=== PATIENT | male | born 1950 | race Caucasian/White ===

== ENCOUNTER → 2016-12-29 | Outpatient (REF) ==
[~2016-12-29] MED LIST: ACET65TA; AMBIEN10 PO; ASPI325T; BABY81CH; CATA0.1T; DEPA250T3; DEPAKOT250 PO; DIOVAN80 PO; HCTZ25 PO; NORVASC5 PO; PLAV75TA2; VALS80CA
[2016-12-29 11:40] LABS: MEAN CORPUSCULAR HEMOGLOBIN 29.6 pg (27.0-33.0); MEAN CORPUSCULAR HGB CONC 33.6 g/dl (32.0-36.5); MEAN CORPUSCULAR VOLUME 87.9 fl (80.0-96.0); RED CELL DISTRIBUTION WIDTH 12.8 % (11.5-14.5); WHITE BLOOD COUNT 6.1 10^3/uL (4.0-10.0)
[2016-12-29 12:55] LABS: ANION GAP 5 MEQ/L (8-16); BLOOD UREA NITROGEN 22 MG/DL (7-18); CARBON DIOXIDE LEVEL 30 MEQ/L (21-32); CHLORIDE LEVEL 106 MEQ/L (98-107); CHOLESTEROL LEVEL 212 MG/DL (<200); CREATININE FOR GFR 1.01 MG/DL (0.70-1.30); GLOMERULAR FILTRATION RATE > 60.0 (>49); GLUCOSE, FASTING 98 MG/DL (80-110); POTASSIUM SERUM 4.4 MEQ/L (3.5-5.1); SODIUM LEVEL 141 MEQ/L (136-145); TRIGLYCERIDES LEVEL 158 MG/DL (<150)
--- NOTE | 2016-12-30 00:52 | REP ---
Clinical: Annual employee health requirement . Comparison: 12/16/2013 . Technique: PA and lateral. Findings: The mediastinum and cardiac silhouette are normal. The lung soliman suggests chronic changes although lateral view cannot exclude new basilar opacities. No effusion, or pneumothorax. The skeletal structures are intact and normal. Impression: 1. No acute cardiopulmonary process. 2. New, subtle right lower lobe opacities on lateral radiograph cannot be excluded and may warrant chest CT for further investigation. Signed by Rommel Botello MD 12/30/2016 12:44 A
--- NOTE | 2016-12-30 23:15 | ECGEPIP ---
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
== END ==
LOC: M LAB 10:57
PROVIDERS: ATTEND Family Medicine
DX: Z02.9 Encounter for administrative examinations, unspecified (principal)

== ENCOUNTER → 2017-08-15 | Outpatient (CLI) | payer OTHER ==
[2017-08-15 08:45] LABS: ALBUMIN 4.2 GM/DL (3.2-5.2); ALBUMIN/GLOBULIN RATIO 1.17 (1.00-1.93); ALKALINE PHOSPHATASE 87 U/L (45-117); ALT/SGPT 43 U/L (12-78); ANION GAP 7 MEQ/L (8-16); AST/SGOT 22 U/L (7-37); BILIRUBIN,TOTAL 0.2 MG/DL (0.2-1.0); BLOOD UREA NITROGEN 28 MG/DL (7-18); CALCIUM LEVEL 8.7 MG/DL (8.8-10.2); CARBON DIOXIDE LEVEL 26 MEQ/L (21-32); CHLORIDE LEVEL 107 MEQ/L (98-107); CHOLESTEROL LEVEL 227 MG/DL (<200); CHOLESTEROL RISK RATIO 7.566 (<5); CREATININE FOR GFR 1.15 MG/DL (0.70-1.30); FREE THYROXINE INDEX 2.2 % (1.4-3.8); GLOMERULAR FILTRATION RATE > 60.0 (>49); GLUCOSE, FASTING 95 MG/DL (70-100); HDL CHOLESTEROL 30 MG/DL (>40); LDL CHOLESTEROL 152.2 MG/DL (<100); NON-HDL-C 197 MG/DL; POTASSIUM SERUM 4.3 MEQ/L (3.5-5.1); SODIUM LEVEL 140 MEQ/L (136-145); T UPTAKE 25 % (33-40); THYROXINE (T4) 8.6 UG/DL (4.5-12.0); TOTAL PROTEIN 7.8 GM/DL (6.4-8.2); TRIGLYCERIDES LEVEL 224 MG/DL (<150)
== END ==
LOC: M LAB 07:28
DX: Z00.00 Encounter for general adult medical examination without abnormal findings (principal); E78.5 Hyperlipidemia, unspecified; E07.9 Disorder of thyroid, unspecified

== ENCOUNTER → 2018-05-22 | Outpatient (CLI) | payer MEDICARE ==
[~2018-05-22] MED LIST changes: +ISOVUE-370 76% 100ML VIAL (Q9967) As Ordered ONE
--- NOTE | 2018-05-22 10:53 | REP ---
CT of the chest with IV contrast for follow up of lung nodules: Comparison is 01/31/2017. There is a 4 ml pleural-based nodule in the right lower lobe on image 56. This is unchanged from the prior study. It was on image 57, previously. There is a 6 ml pleural-based nodule in the right lower lobe on image 65. This nodule previously measured 3 mm. It is on image 67, previously. There are small calcified granulomas in the lower lobes bilaterally, unchanged. There are no other lung nodules or masses. Specifically, no left lower lobe lung nodules are identified except for a small granulomas. There are no acute infiltrates or pleural effusions. There is no mediastinal or hilar lymph node enlargement. There is no axillary lymph node enlargement. There is calcified atheroma in the coronary arteries. This is unchanged. Half half The thoracic aorta is unremarkable. Cardiac size is normal. The visualized upper abdomen the liver is less dense than the spleen suggestive of hepato steatosis, unchanged. The gallbladder, pancreas and spleen are unremarkable. There is no adrenal mass. Impression: One of the two right lower lobe lung nodules as increased size from 3 mm to 6 mm. This is a category III lung nodule with the probability malignancy 1-2%. Follow-up CT in 6 months is recommended. The other right lower lobe lung nodule is unchanged and measures 3 mm and is likely benign. There are no left lower lobe lung nodules. Electronically Signed by Alfred Stratton MD 05/22/2018 10:46 A
== END ==
LOC: M RAD 07:13
PROVIDERS: ATTEND Family Medicine
DX: R91.8 Other nonspecific abnormal finding of lung field (principal)
CPT/HCPCS: 71260; Q9967

== ENCOUNTER → 2018-10-08 | Outpatient (REF) | payer MEDICARE ==
[~2018-10-08] MED LIST changes: -ISOVUE-370 76% 100ML VIAL (Q9967) As Ordered ONE
== END ==
LOC: M LAB REF 12:53
PROVIDERS: ATTEND Family Medicine
DX: R53.83 Other fatigue (principal)

== ENCOUNTER → 2018-11-28 | Outpatient (REF) | payer MEDICARE | LOC: M LAB REF 12:55 | PROVIDERS: ATTEND Family Medicine | DX: F31.81 Bipolar II disorder (principal) ==

== ENCOUNTER → 2018-12-04 | Outpatient (CLI) | payer MEDICARE ==
[~2018-12-04] MED LIST changes: +ISOVUE-370 76% 100ML VIAL (Q9967) As Ordered ONE
--- NOTE | 2018-12-04 17:51 | REP ---
Clinical: Follow-up pulmonary nodules. Technique: Axial contrast enhanced images from the thoracic inlet to the upper abdomen with coronal and sagittal re-formations using 100 ml Isovue 370 intravenous contrast material. Comparison: 05/22/2018, 01/31/2017. Findings: The previously noted small subpleural noncalcified density measuring up to 6 mm in the posterior right lower lobe has resolved and likely represented small focal atelectasis. The second subpleural 3 mm nodule along the right lower lobe (image 50) remains stable compared to 01/31/2017. 3 mm noncalcified nodule in the posterior periphery of the left lower lobe (image 74) remains stable compared through 01/31/2017. Very small 1-2 mm subpleural calcifications are also noted and unchanged. No significant consolidation, nodule or mass lesion noted. No pleural effusion. No pneumothorax. Tracheobronchial tree is patent. Minimal age-related interstitial changes are noted. No adenopathy. Mediastinum demonstrates normal thoracic aorta without aneurysm or dissection. Atherosclerotic changes to the coronary arteries noted without cardiomegaly or pericardial effusion. Limited upper abdomen demonstrates fatty infiltration to the liver and normal bilateral adrenal glands. Ischial skeletal structures demonstrate degenerative change without focal abnormality. Impression: 1. The previously noted/followed noncalcified subpleural nodules in the right lower lobe and left lower lobe remains stable through 01/31/2017 and likely represent chronic noncalcified granulomata. 2. No new acute or significant mediastinal or pleuroparenchymal process is appreciated. Electronically Signed by Rommel Botello MD 12/04/2018 05:42 P
== END ==
LOC: M RAD 16:33
PROVIDERS: ATTEND Family Medicine
DX: R91.8 Other nonspecific abnormal finding of lung field (principal)
CPT/HCPCS: 71260; Q9967

== ENCOUNTER → 2019-05-03 | Outpatient (CLI) | payer MEDICARE ==
[~2019-05-03] MED LIST changes: -ISOVUE-370 76% 100ML VIAL (Q9967) As Ordered ONE
[2019-05-03 15:00] LABS: HEMATOCRIT 41.6 % (42.0-52.0); HEMOGLOBIN 13.7 g/dl (13.5-17.5); MEAN CORPUSCULAR HEMOGLOBIN 30.2 pg (27.0-33.0); MEAN CORPUSCULAR HGB CONC 32.9 g/dl (32.0-36.5); MEAN CORPUSCULAR VOLUME 91.8 fl (80.0-96.0); PLATELET COUNT, AUTOMATED 209 10^3/uL (150-450); RED BLOOD COUNT 4.53 10^6/uL (4.30-6.10); WHITE BLOOD COUNT 5.6 10^3/uL (4.0-10.0)
[2019-05-03 15:13] LABS: INR 1.04; PROTHROMBIN TIME 13.4 SECONDS (11.8-14.0)
--- NOTE | 2019-05-03 15:15 | REP ---
PA and lateral chest: Comparison is 12/29/2016. The lung soliman are clear. The cardiac size is normal. The esme, mediastinum, and skeletal structures are unremarkable. Impression: Negative PA and lateral chest. Electronically Signed by Alfred Stratton MD 05/03/2019 03:07 P
[2019-05-03 15:32] LABS: ALBUMIN 4.2 GM/DL (3.2-5.2); ALT/SGPT 48 U/L (12-78); BILIRUBIN,TOTAL 0.3 MG/DL (0.2-1.0); BLOOD UREA NITROGEN 24 MG/DL (7-18); CALCIUM LEVEL 9.2 MG/DL (8.8-10.2); CARBON DIOXIDE LEVEL 30 MEQ/L (21-32); CHLORIDE LEVEL 105 MEQ/L (98-107); CREATININE FOR GFR 1.05 MG/DL (0.70-1.30); GLOMERULAR FILTRATION RATE > 60.0 (>49); GLUCOSE, FASTING 96 MG/DL (70-100); POTASSIUM SERUM 3.9 MEQ/L (3.5-5.1); SODIUM LEVEL 141 MEQ/L (136-145); TOTAL PROTEIN 7.5 GM/DL (6.4-8.2)
[2019-05-03 23:11] LABS: ERYTHROCYTE SEDIMENTATION RATE 9 mm/hr (0-20)
== END ==
LOC: M LAB 14:20
PROVIDERS: ATTEND Family Medicine
DX: Z01.818 Encounter for other preprocedural examination (principal); E07.9 Disorder of thyroid, unspecified; M17.12 Unilateral primary osteoarthritis, left knee

== ENCOUNTER 2019-05-22 06:40 | Inpatient (IN) | payer MEDICARE ==
--- NOTE | 2019-05-15 15:36 | HPE ---
DATE OF ADMISSION: 05/22/2019 CHIEF COMPLAINT: Left knee pain. HISTORY OF PRESENT ILLNESS: Uche is a pleasant 68-year-old male with progressively worsening left knee pain and stiffness. He has failed to improve with conservative treatment. He has elected for surgery for his continued symptoms. He has pain with weightbearing activities and his activities of daily living. X-rays of his knee are notable for advanced osteoarthritis of the left knee joint. He has consented for a left total knee arthroplasty by Dr. Leroy Borges. Medical optimization was performed by Dr. Fernandez's office. ALLERGIES: JACKY INHIBITORS and LISINOPRIL. CURRENT MEDICATIONS: - Norvasc - venlafaxine HCTZ 12.5 mg a day - Effexor - Depakote PAST MEDICAL HISTORY: Includes: Hypertension, depression. PAST SURGICAL HISTORY: Includes: Lap/appy in the 90s and a hernia repair as a child. 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 Does not smoke. Does not drink. FAMILY HISTORY: Noncontributory. REVIEW OF SYSTEMS: This patient denies chest pain, heart palpitations, cough, wheezing, difficulty breathing, and shortness of breath. He denies abdominal pain, nausea, vomiting, diarrhea, or constipation. He denies a recent upper respiratory infection or urinary tract infection symptoms. He does complain of persistent pain in the left knee. PHYSICAL EXAMINATION: General: He is a well nourished, well developed, in no acute distress alert male patient. He walks with a moderate limp favoring the left lower extremity. He is not using assisted devices. Vital signs: He is 6'1. Weights 225 pounds. Temperature 98.1. Blood pressure 124/79. Pulse 68. Respirations 14. Neck: Supple without adenopathy or jugular venous distention. There were no carotid bruits appreciated upon auscultation. Lungs: Clear to auscultation without rales or wheeze. Heart: Regular rate and rhythm. Abdomen: Bowel sounds were present. Extremities: Examination of the knee reveals a benign noninfectious looking well healing cat scratch proximal to the knee. Otherwise the skin was intact. He had decreased range of motion due to pain and stiffness and the limb is neurovascularly intact. LABORATORY DATA: Patient did have an EKG, but ended up having a treadmill nuclear stress test with good exercise tolerance. EKG negative for exercise induced ischemia. Normal left ventricular wall motion and pulmonary uptake. Chest x-ray showed no acute cardiopulmonary disease processes. CBC showed hematocrit of 41.6, otherwise within normal limits. Sed rate was 9. Glucose 96. BUN 24. Creatinine 1.05. Sodium 141. Potassium 3.9. Prothrombin time 13.4. INR 1.04. IMPRESSION: Symptomatic osteoarthritis of the left knee joint. PLAN: Consented for a left total knee arthroplasty by Dr. Leroy Borges.
[~2019-05-22] VITALS: Ht 185.4 cm; Wt 100.9 kg
[~2019-05-22 06:40] MED LIST changes: +AMLO10TA PO; +ASPI81TA85 PO; +CVS1CAP2 PO; +DEPA250T32 PO; +DIOV80TA3 PO; +LOSA50TA88 PO; +MULTCAP PO; +PERC5TAB12 PO; +VENL75TA2 PO
[2019-05-22] MEDS ORDERED: fentaNYL 100 MCG/2 ML INJECTION (J3010) As Ordered ONE ×2 (06:56→09:27)
[2019-05-22] MEDS ORDERED: MIDAZOLAM INJ 2 MG/2 ML VIAL (J2250) As Ordered ONE ×3 (06:56→11:33)
[2019-05-22] MEDS ORDERED: ONDANSETRON 4MG/2ML VIAL (J2405) As Ordered ONE ×2 (06:57→10:54)
[2019-05-22] MEDS ORDERED: propofoL 200 MG/20 ML VIAL As Ordered ONE ×2 (06:57→10:53)
[2019-05-22] MEDS ORDERED: ROCURONIUM BROMIDE 50 MG/5 ML VIAL As Ordered ONE (06:57)
[2019-05-22] MEDS ORDERED: LIDOCAINE 2% INJ 100 MG/5 ML SDV (FOR ANES.) As Ordered ONE ×2 (06:57→10:53)
[2019-05-22] MEDS ORDERED: dexameTHASONE 4 MG/ML 1ML VIAL (J1100) As Ordered ONE ×2 (06:57→10:54)
[2019-05-22] MEDS ORDERED: SUGAMMADEX SODIUM 500 MG/5 ML VIAL (BRIDION) As Ordered ONE (06:57)
[2019-05-22] MEDS ORDERED: ACETAMINOPHEN 500 MG TAB PO ONE (07:00)
[2019-05-22] MEDS ORDERED: LR 1,000 ML IV ONE (07:00)
[2019-05-22] MEDS ORDERED: ceFAZolin SOD 2 GM in IV 1 EA IV ONE (07:00)
[2019-05-22] MEDS ORDERED: HYDR12.55 PO (08:19)
[2019-05-22] MEDS ORDERED: BUPIVACAINE HCL 0.25% 10 ML VIAL As Ordered ONE (10:02)
[2019-05-22] MEDS ORDERED: TRANEXAMIC ACID 100 MG/ML 10ML VIAL As Ordered ONE (10:02)
[2019-05-22] MEDS ORDERED: ceFAZolin 1GM INJ (J0690 PER 500MG) As Ordered ONE (10:03)
[2019-05-22] MEDS ORDERED: BUPIVACAINE LIPOSOME/PF 1.3% 20ML VIAL (13.3MG/ML)(EXPAREL)(C9290 PER1MG) As Ordered ONE (10:03)
[2019-05-22] MEDS ORDERED: EPINEPHrine INJ 1 MG/ML 1ML VIAL As Ordered ONE (10:03)
[2019-05-22] MEDS: fentaNYL 100 MCG/2 ML INJECTION (J3010) IV SCH ×2 (10:23→10:31)
[2019-05-22] MEDS: MIDAZOLAM INJ 2 MG/2 ML VIAL (J2250) IV SCH ×2 (10:23→10:31)
[2019-05-22] MEDS ORDERED: ROPIvacaine 0.5% 30 ML INJECTION (J2795 PER 1MG) ONE (13:37)
[2019-05-22] MEDS ORDERED: dexameTHASONE 10 MG/1 ML VIAL PRES.FREE (J1100) ONE (13:37)
[2019-05-22] MEDS ORDERED: LIDOCAINE 1% MDV 20ML VIAL ONE (13:37)
--- NOTE | 2019-05-22 14:49 | REP ---
Clinical: Status post knee replacement. Technique AP and cross-table lateral views. Findings: The patient is status post left knee replacement with normal positioning and appearance to the femoral and tibial components. Overlying postsurgical changes appreciated. Impression: Status post left knee replacement. Electronically Signed by Rommel Botello MD 05/22/2019 02:37 P
[2019-05-22] MEDS ORDERED: fentaNYL 100 MCG/2 ML INJECTION (J3010) IV PRN (15:00)
[2019-05-22] MEDS ORDERED: ONDANSETRON 4MG/2ML VIAL (J2405) IV PRN ×2 (15:00→16:00)
[2019-05-22] MEDS ORDERED: LR 1,000 ML IV SCH ×2 (15:00→16:00)
[2019-05-22] MEDS ORDERED: PERCOCET 5MG/325MG TAB PO PRN ×3 (15:00→22:15)
[2019-05-22 15:10] VITALS: BP 113/75
[2019-05-22] MEDS ORDERED: ACETAMINOPHEN TAB 650MG DOSE (2X325MG) PO PRN (16:00)
[2019-05-22] MEDS ORDERED: MORPHINE 2 MG/ML 1ML VIAL (J2270) IV PRN (16:00)
[2019-05-22 16:39] VITALS: BP 136/87
--- NOTE | 2019-05-22 16:55 | CR.PDOC ---
General Date of Consultation: May 22, 2019 Referring Provider: Mag Borges Attending Physician: MARCIN IBRAHIM MD Consultation HOSPITALIST CONSULT REASON FOR CONSULTATION/CHIEF COMPLAINT: medical management post-operatively HISTORY OF PRESENT ILLNESS: This is a 68-year-old male who underwent elective total left knee replacement with Dr. Borges today. Hospitalist was consulted for continued medical management. Patient has no current complaints while examined at bedside, and indicates the surgery went well and is now comfortable in bed. Denies any chest pain, dyspnea, n/v/abd pain, leg pain or paresthesia. Tolerating by mouth intake well. Has no complaints. ALLERGIES: Please see below. HOME MEDICATIONS: Please see below. 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 General exam: Alert and cooperative, A&Ox3, NAD Eye exam: PERRLA, EOMI ENT: Atraumatic, normocephalic, mucous membranes moist, tongue midline, no pharyngeal edema Neck: Supple Cardiac: RRR, normal S1 & S2, no murmurs Respiratory: CTAB, good air exchange, no wheezing, rhonchi, or rales Abdomen: normoactive bowel sounds, soft, nontender, nondistended Extremity: 2+ radial pulses, no edema or calf tenderness. Well-perfused, left knee in jacky wrap post-op MSK: able to move all extremities independently against gravity, no joint effusion or erythema. Trace LE edema b/l Skin: [place], warm, dry, no visible rash or lesions Neuro: normal tone, sensation intact, normal speech, no focal deficits Psych: Normal mood and affect LABORATORY DATA: Please see below. ASSESSMENT/PLAN: 1. S/P left knee total arthroplasty post-op Day 1: Pain, diet, activity as per Ortho. Work with therapy 2. Hypertension: Currently well controlled. Monitor postoperatively and check renal function and a.m. labs. Resume home meds as needed 3. Depression: Stable current regimen for over 20 years per the patient. Continue home meds. Thank you for involving us in this patient's care. Please call for any questions. Vital Signs/I&O Vital Signs Date Time Temp Pulse Resp B/P (MAP) Pulse Ox O2 Delivery O2 Flow Rate FiO2 05/22/19 14:30 76 18 120/81 (94) 97 Room Air 05/22/19 14:10 2 05/22/19 14:05 98.6 Allergies Coded Allergies: JACKY Inhibitors (Unverified Adverse Reaction, Unknown, ringing in ears, 05/14/19) Home Medications Scheduled Amlodipine Besylate (Norvasc) 10 Mg Tablet, 10 MG PO DAILY, (Reported) Aspirin (Aspir 81) 81 Mg Tablet.dr, 81 MG PO DAILY, #30 (Reported) Divalproex Sodium (Depakote) 250 Mg Tablet.dr, 250 MG PO QID, (Reported) Hydrochlorothiazide (Hydrochlorothiazide) 12.5 Mg Tablet, 12.5 MG PO DAILY, (Reported) Lactobacillus Combo No.10 (Probiotic) 1 Each Capsule, 1 CAP PO DAILY, (Reported) Losartan Potassium (Losartan Potassium) 50 Mg Tablet, 50 MG PO BID, (Reported) Multivitamin (Multivitamins) 1 Each Capsule, 1 CAP PO DAILY, (Reported) Venlafaxine HCl (Venlafaxine HCl) 75 Mg Tablet, 75 MG PO BID, (Reported) Scheduled PRN Oxycodone HCl/Acetaminophen (Percocet 5-325 mg Tablet) 1 Each Tablet, 1 TAB PO Q6H PRN for PAIN, #20 (Reported) GME ATTESTATION GME ATTESTATION My faculty preceptor for this patient encounter was physically present during the encounter and was fully available. All aspects of the patient interview, examination, medical decision making process, and medical care plan development were reviewed and approved by the faculty preceptor. The faculty preceptor is aware and concurs with the plan as stated in the body of this note and will attest to such by his/her cosignature. CAROLINA NICHOLS DO May 22, 2019 15:04
[2019-05-22] MEDS: DIVALPROEX 250 MG TAB PO SCH ×2 (17:31→20:25)
[2019-05-22 17:38] VITALS: BP 136/87
[2019-05-22 18:38] VITALS: BP 137/86
[2019-05-22 19:30] VITALS: BP 137/87
[2019-05-22] MEDS: VENLAFAXINE 37.5 MG TAB PO SCH (20:25)
[2019-05-22] MEDS: ceFAZolin SOD 2 GM in IV 1 EA IV SCH (20:25)
[2019-05-22] MEDS: MORPHINE 4 MG/ML 1ML VIAL/SYRINGE (J2270) IV PRN (21:33)
[2019-05-22] MEDS: PERCOCET 5MG/325MG TAB PO PRN (22:17)
[2019-05-23] MEDS: MORPHINE 4 MG/ML 1ML VIAL/SYRINGE (J2270) IV PRN (00:28)
[2019-05-23 02:00] VITALS: BP_SYST 129; BP_SYST 137; BP_DIAS 79; BP_DIAS 87
[2019-05-23] MEDS: ceFAZolin SOD 2 GM in IV 1 EA IV SCH ×2 (03:50→11:15)
[2019-05-23] MEDS: PERCOCET 5MG/325MG TAB PO PRN ×5 (03:51→21:02)
[2019-05-23 06:00] VITALS: BP 127/79
[2019-05-23] MEDS ORDERED: PERC5TAB12 PO (06:01)
[2019-05-23] MEDS ORDERED: XARE10TA PO (06:03)
[2019-05-23 07:23] LABS: BASO % 0.1 % (0.0-1.0); HEMATOCRIT 33.7 % (42.0-52.0); HEMOGLOBIN 11.5 g/dl (13.5-17.5); LYMPH % 7.4 % (24.0-44.0); MEAN CORPUSCULAR HEMOGLOBIN 31.3 pg (27.0-33.0); MEAN CORPUSCULAR HGB CONC 34.1 g/dl (32.0-36.5); MEAN CORPUSCULAR VOLUME 91.6 fl (80.0-96.0); MONO # 1.4 10^3/uL (0.0-0.8); MONO % 9.9 % (0.0-5.0); NEUTROPHILS # 11.3 10^3/uL (1.5-8.5); NEUTROPHILS % 82.1 % (36.0-66.0); PLATELET COUNT, AUTOMATED 211 10^3/uL (150-450); RED BLOOD COUNT 3.68 10^6/uL (4.30-6.10); WHITE BLOOD COUNT 13.7 10^3/uL (4.0-10.0)
[2019-05-23 07:54] LABS: ALBUMIN 3.4 GM/DL (3.2-5.2); ALT/SGPT 35 U/L (12-78); BILIRUBIN,TOTAL 0.1 MG/DL (0.2-1.0); BLOOD UREA NITROGEN 18 MG/DL (7-18); CALCIUM LEVEL 8.6 MG/DL (8.8-10.2); CARBON DIOXIDE LEVEL 27 MEQ/L (21-32); CHLORIDE LEVEL 108 MEQ/L (98-107); CREATININE FOR GFR 1.02 MG/DL (0.70-1.30); GLOMERULAR FILTRATION RATE > 60.0 (>49); GLUCOSE, FASTING 137 MG/DL (70-100); POTASSIUM SERUM 4.4 MEQ/L (3.5-5.1); SODIUM LEVEL 138 MEQ/L (136-145); TOTAL PROTEIN 6.5 GM/DL (6.4-8.2)
[2019-05-23 08:20] VITALS: BP 121/72
[2019-05-23] MEDS: ASPIRIN 81 MG ENTERIC TAB PO SCH (08:58)
[2019-05-23] MEDS: DIVALPROEX 250 MG TAB PO SCH ×4 (08:58→21:03)
[2019-05-23] MEDS: MIRALAX *UNIT DOSE* 17GM PACKET PO SCH (08:59)
[2019-05-23] MEDS: MOM 30ML SUSPENSION UDC PO SCH (08:59)
[2019-05-23] MEDS: VENLAFAXINE 37.5 MG TAB PO SCH ×2 (08:59→21:03)
--- NOTE | 2019-05-23 10:10 | RO ---
DATE OF PROCEDURE: 05/22/2019 PREPROCEDURE DIAGNOSIS: Extreme varus tricompartmental degenerative arthritis of the left knee. POSTPROCEDURE DIAGNOSIS: Extreme varus tricompartmental degenerative arthritis of the left knee. PROCEDURE: Left total knee arthroplasty using a Size 7 cruciate retaining Attune cemented femoral component with a size 8 tibial tray with a 10 mm rotating platform polyethylene insert and a 38 mm polyethylene button. All components were cemented. Prosthesis was made by [employer]. SURGEON: Dr. Mag Borges VICE PRESIDENT NETWORK: Ms. Binta Peres ANESTHESIA: Spinal with left femoral nerve block. COMPLICATIONS: None. ESTIMATED BLOOD LOSS: 20 mL. SPECIMEN: Joint surface. DESCRIPTION OF PROCEDURE: Antibiotics were given intravenously preoperatively and a successful left femoral nerve block and then spinal anesthetic was induced. Tourniquet placed on the left upper thigh and not inflated. The left lower extremity was prepped and draped in the usual sterile fashion, elevated and after an appropriate time out the tourniquet was inflated and a longitudinal incision was made for a medial parapatellar approach to the knee. Bovie cautery was used to coagulate crossing vessels. Medial parapatellar arthrotomy was made. Subperiosteal dissection around the proximal medial and lateral tibial plateau was performed and then we everted the patella and flexed the knee and debrided the anterior cruciate ligament (ACL). We placed the drill down the center of the femoral canal, followed by the intramedullary jah and the distal femoral cutting jig set at 5 degrees valgus cut at 9 mm resection level for a left knee. The block was pinned in position and distal femoral cut performed. AP sizing jig measured for a size 7. Then 3 degrees of external rotation was dialed in and the pins were placed. The 4-in-1 block applied. Anterior, posterior, and chamfer cuts performed. The sulcus osteotomy jig was then applied and the sulcus osteotomy performed. We then exposed the proximal tibia and used the extramedullary alignment jig to estimate being parallel to the mechanical axis. We centered over the ankle. He had a significant amount of proximal tibial bowing, so we just used the joint line and the ankle to align the extramedullary jah. We referenced off the medial tibial condyle a 4 mm resection level. The block was pinned into position. Secondary check with the extramedullary jah confirmed we appeared to be parallel to the mechanical axis. Thus, proximal tibial osteotomy was then performed. The [facility] advanced practice nurse was then placed laterally and we performed a completion medial meniscectomy with debridement of the posterior medial osteophytes. Then placed the [facility] advanced practice nurse medially and performed a completion lateral meniscectomy with debridement of posterior lateral osteophytes. The 10 mm spacer fit the best and actually had excellent symmetry in varus, valgus and AP stress testing. Thus, surprisingly I did not feel the need to convert to a posterior cruciate sacrificing construct because he had good balance and stability. Thus, at this point we then sized for a #8 tibial tray, pinned it into position, followed by the reamer and the broach. Then, the trial 10 mm was placed, followed by the trial femoral component. We brought the knee into extension, everted the patella and performed a patellar osteotomy and sized for a 38 osteotomy. Lug holes were drilled. We then brought the knee through a range of motion and the patellofemoral tracking was anatomic. At this point, we drilled the lug holes for the femur. We then removed all the trial components. Then, placed Exparel in the subperiosteal tissues around the distal femur and the proximal tibia. Then at this point, Ms. Binta Peres mixed the cement on the back table as I prepared the bony surfaces for cementing with a copious amount of pulsatile lavage irrigant solution. Greyson Binta Peres was also critical to the success of this difficult procedure by helping with appropriate soft tissue retraction, helping to close the wound, helping to mix the cement, helping to manipulate the knee as needed so I could perform the operation smoothly, efficiently and safely. Once all the bony surfaces were copiously and thoroughly irrigated and then dried, the tibial tray was cemented into positio. Then we removed excess cement and placed the polyethylene. Then cemented the femoral component and removed the excess cement. Then brought the knee into extension, everted the patella, and cemented the patella component and held it with a clamp with the knee in full extension. Then removed the excess cement. We held this position until the cement hardened. As we were awaiting this, we copiously pulsatile lavaged and irrigated out the knee joint. Then placed tranexamic acid in the knee and then began closing the apex of the arthrotomy with two #1 PDS, the medial parapatellar area closed with #1 PDS sutures, and then the capsule was closed with a running doubled arms #1 Stratafix. Then the tourniquet was released. We irrigated between layers and closed the deep subdermal tissues with interrupted #2-0 PDS suture. The skin was closed with cathleen and covered by Optifoam and dry sterile bulky dressing. He was then transferred to the recovery room in stable condition. There were no intraoperative complications.
[2019-05-23 14:28] VITALS: BP 130/87
[2019-05-23] MEDS ORDERED: MAGNESIUM CITRATE 300 ML BTL PO ONE ×2 (16:00→19:00)
[2019-05-23] MEDS: MORPHINE 15 MG SA TAB PO SCH (17:35)
[2019-05-23] MEDS ORDERED: RIVAROXABAN 10 MG TAB (XARELTO) PO SCH (18:00)
[2019-05-23] MEDS: SENOKOT S TAB PO SCH (21:03)
[2019-05-23 22:14] VITALS: BP 132/91
[2019-05-24] MEDS: PERCOCET 5MG/325MG TAB PO PRN ×3 (02:06→10:39)
[2019-05-24] MEDS ORDERED: XARE10TA PO (05:42)
[2019-05-24] MEDS ORDERED: MAGNESIUM CITRATE 300 ML BTL PO ONE (05:45)
[2019-05-24 06:39] VITALS: BP 148/92
[2019-05-24 08:07] LABS: HEMATOCRIT 34.6 % (42.0-52.0); HEMOGLOBIN 11.5 g/dl (13.5-17.5); MEAN CORPUSCULAR HEMOGLOBIN 31.2 pg (27.0-33.0); MEAN CORPUSCULAR HGB CONC 33.2 g/dl (32.0-36.5); MEAN CORPUSCULAR VOLUME 93.8 fl (80.0-96.0); PLATELET COUNT, AUTOMATED 203 10^3/uL (150-450); RED BLOOD COUNT 3.69 10^6/uL (4.30-6.10); WHITE BLOOD COUNT 8.4 10^3/uL (4.0-10.0)
[2019-05-24] MEDS ORDERED: MS C15TA8 PO (08:26)
[2019-05-24 08:37] LABS: ALBUMIN 3.5 GM/DL (3.2-5.2); ALT/SGPT 26 U/L (12-78); BILIRUBIN,TOTAL 0.3 MG/DL (0.2-1.0); BLOOD UREA NITROGEN 18 MG/DL (7-18); CALCIUM LEVEL 8.3 MG/DL (8.8-10.2); CARBON DIOXIDE LEVEL 32 MEQ/L (21-32); CHLORIDE LEVEL 106 MEQ/L (98-107); CREATININE FOR GFR 0.87 MG/DL (0.70-1.30); GLOMERULAR FILTRATION RATE > 60.0 (>49); GLUCOSE, FASTING 86 MG/DL (70-100); POTASSIUM SERUM 3.5 MEQ/L (3.5-5.1); SODIUM LEVEL 141 MEQ/L (136-145)
[2019-05-24] MEDS: MORPHINE 15 MG SA TAB PO SCH (08:48)
[2019-05-24] MEDS: ASPIRIN 81 MG ENTERIC TAB PO SCH (08:48)
[2019-05-24 08:49] VITALS: BP 148/92
[2019-05-24] MEDS: VENLAFAXINE 37.5 MG TAB PO SCH (08:49)
[2019-05-24] MEDS: SENOKOT S TAB PO SCH (08:49)
[2019-05-24] MEDS: DIVALPROEX 250 MG TAB PO SCH (08:49)
[2019-05-24] MEDS: MIRALAX *UNIT DOSE* 17GM PACKET PO SCH (08:54)
[2019-05-24] MEDS: MOM 30ML SUSPENSION UDC PO SCH (08:54)
[2019-05-24] MEDS ORDERED: amLODIPine 10 MG TAB PO SCH (09:00)
[2019-05-24] MEDS ORDERED: LOSARTAN 50 MG TAB PO SCH (09:00)
[2019-05-24] MEDS ORDERED: hydroCHLOROthiazide 12.5 MG CAPSULE PO SCH (09:00)
--- NOTE | 2019-05-24 18:47 | IPNPDOC ---
Text Note Date of Service The patient was seen on 05/24/19. NOTE HOSPITALIST PROGRESS NOTE HISTORY OF PRESENT ILLNESS: Patient examined at bedside. Has no complaints. Pain is under control. He is eager to go home. Tolerating all by mouth intake well. PHYSICAL EXAMINATION: VITAL SIGNS: Please see below. General exam: Alert and cooperative, A&Ox3, NAD Eye exam: PERRLA, EOMI ENT: Atraumatic, normocephalic, mucous membranes moist Cardiac: RRR, normal S1 & S2, no murmurs Respiratory: CTAB, good air exchange, no wheezing, rhonchi, or rales Abdomen: normoactive bowel sounds, soft, nontender, nondistended Extremity: 2+ radial pulses, no edema or calf tenderness. Well-perfused, left knee with clean dry intact bandage MSK: able to move all extremities independently against gravity, mswollen left knee from recent surgery. No LE edema Skin: [place], warm, dry, echymossis on left knee post-op Neuro: normal tone, sensation intact, normal speech, no focal deficits Psych: Normal mood and affect ASSESSMENT/PLAN: This is a 68-year-old male who underwent elective total left knee replacement with Dr. Borges today. Hospitalist was consulted for continued medical management. 1. S/P left knee total arthroplasty post-op Day 3: Pain, diet, activity as per Ortho. Work with therapy 2. Hypertension: Starting to rise. Pt asymptomatic. Resume home bp meds. Renal function stable post-operatively 3. Depression: Stable. Continue home meds. Pt is medically stable. Continue as per Ortho. VS,Fishbone, I+O VS, Fishbone, I+O Laboratory Tests 05/24/19 07:27 Vital Signs Date Time Temp Pulse Resp B/P (MAP) Pulse Ox O2 Delivery O2 Flow Rate FiO2 05/24/19 11:09 16 05/24/19 08:49 148/92 05/24/19 08:49 90 05/24/19 06:39 97.6 97 Room Air 05/22/19 14:10 2 I&O- Last 24 Hours up to 6 AM 05/24/19 06:00 Intake Total 1810 ml Output Total 1375 ml Balance 435 ml GME ATTESTATION GME ATTESTATION My faculty preceptor for this patient encounter was physically present during the encounter and was fully available. All aspects of the patient interview, examination, medical decision making process, and medical care plan development were reviewed and approved by the faculty preceptor. The faculty preceptor is aware and concurs with the plan as stated in the body of this note and will attest to such by his/her cosignature. CAROLINA NICHOLS DO May 24, 2019 18:47
--- NOTE | 2019-05-28 08:18 | DSES ---
DATE OF ADMISSION: 05/22/2019 DATE OF DISCHARGE: 05/24/2019 ATTENDING PHYSICIAN: Dr. Leroy Borges ADMISSION DIAGNOSIS: Osteoarthritis left knee. OTHER DIAGNOSES: Hypertension, depression. DISCHARGE DIAGNOSIS: Osteoarthritis left knee status post left total knee arthroplasty. OPERATION PERFORMED: Left total knee arthroplasty. HISTORY: This a 68-year-old male patient with progressively worsening left knee pain and stiffness. He failed to improve with conservative management. He was admitted for elective knee replacement on the left side. HOSPITAL COURSE: The patient was admitted on day of surgery and underwent a left total knee arthroplasty which was uneventful. During the postoperative course he did struggle with the requirements of physical therapy and pain control. Ultimately his pain was controlled and he was able to complete his requirements of physical therapy. On day of discharge his pain was controlled. The will use thromboembolic deterrent stockings (TEDS) for 30 days postoperative for deep venous thrombosis (DVT) prophylaxis. He also use Xarelto 10 mg per their protocol for DVT prophylaxis. He will resume his preoperative medications and diet. He will use oral pain medications for pain control. He is weightbearing as tolerated in his left lower extremity. He will followup in our office in 10-14 days for surgical followup. He was given instructions to include but not limited to monitoring activity limitations. Please refer the medical record further details.
== END 2019-05-24 13:30 | disposition home or self-care (01) | DRG 470 ==
LOC: M OR 06:40 → M MS5PR 15:00
PROVIDERS: ADMIT Orthopaedic Surgery; ATTEND Orthopaedic Surgery
PROC: 0SRD0J9 Replacement of Left Knee Joint with Synthetic Substitute, Cemented, Open Approach (ICD-10-PCS; principal; 2019-05-22 09:50)
DX: M17.12 Unilateral primary osteoarthritis, left knee (principal); I10 Essential (primary) hypertension; F32.9 Major depressive disorder, single episode, unspecified; R26.89 Other abnormalities of gait and mobility; Z79.899 Other long term (current) drug therapy; Z88.8 Allergy status to other drugs, medicaments and biological substances

== ENCOUNTER → 2020-03-09 | Outpatient (CLI) | payer MEDICARE ==
[~2020-03-09] MED LIST changes: -ASPI81TA85 PO; +ASPI81TA86 PO; +HYDR12.55 PO; +MS C15TA8 PO; +XARE10TA PO
== END ==
LOC: M LABSMTC 13:45
PROVIDERS: ATTEND Pediatrics
DX: Z20.828 Contact with and (suspected) exposure to other viral communicable diseases (principal)

== ENCOUNTER → 2020-05-13 | Outpatient (REF) | payer MEDICARE | LOC: M LAB REF 16:30 | PROVIDERS: ATTEND Family Medicine | DX: F31.81 Bipolar II disorder (principal) ==

== ENCOUNTER → 2021-02-01 | Outpatient (CLI) | payer BC, MEDICARE, OTHER ==
[2021-02-01 18:38] LABS: HEMATOCRIT 41.5 % (42.0-52.0); HEMOGLOBIN 14.5 g/dl (13.5-17.5); MEAN CORPUSCULAR HGB CONC 34.9 g/dl (32.0-36.5); MEAN CORPUSCULAR VOLUME 94.5 fl (80.0-96.0); PLATELET COUNT, AUTOMATED 216 10^3/uL (150-450); RED BLOOD COUNT 4.39 10^6/uL (4.30-6.10); WHITE BLOOD COUNT 6.1 10^3/uL (4.0-10.0)
[2021-02-01 19:04] LABS: ALBUMIN 4.2 GM/DL (3.2-5.2); ALT/SGPT 47 U/L (12-78); BILIRUBIN,TOTAL 0.4 MG/DL (0.2-1.0); BLOOD UREA NITROGEN 20 MG/DL (7-18); CALCIUM LEVEL 9.5 MG/DL (8.8-10.2); CARBON DIOXIDE LEVEL 28 MEQ/L (21-32); CHLORIDE LEVEL 106 MEQ/L (98-107); CREATININE FOR GFR 1.06 MG/DL (0.70-1.30); GLOMERULAR FILTRATION RATE > 60.0 (>49); GLUCOSE, FASTING 88 MG/DL (70-100); POTASSIUM SERUM 3.9 MEQ/L (3.5-5.1); SODIUM LEVEL 139 MEQ/L (136-145); TOTAL PROTEIN 7.8 GM/DL (6.4-8.2)
== END ==
LOC: M PLALAB 15:11
PROVIDERS: ATTEND Psychiatry & Neurology Psychiatry
DX: F31.9 Bipolar disorder, unspecified (principal)

== ENCOUNTER 2021-07-22 09:14 | Day surgery (SDC) | payer MEDICARE ==
[~2021-07-22] VITALS: Ht 185.4 cm; Wt 100.7 kg
[~2021-07-22 09:14] MED LIST changes: +AMBI10TA PO; +AMLO1TAB25; +CODE30TA PO; +DIVA250T7; +DULO1CAP5; +ECOT81TA5 PO; +LOSA50TA28 PO; -LOSA50TA88 PO; +MULTIMINERAL; +NS 1,000 ML IV ONE; +VALS1TAB66; +VITA100093 PO; +VITMTA PO
[2021-07-22] MEDS ORDERED: LIDOCAINE 2% 100MG/5ML SDV (FOR ANES.) As Ordered ONE (09:39)
[2021-07-22] MEDS ORDERED: propofoL 200 MG/20 ML VIAL As Ordered ONE (09:39)
[2021-07-22 11:40] VITALS: BP 111/66
== END 2021-07-22 11:42 | disposition home or self-care (01) ==
LOC: M OPP 09:14
PROVIDERS: ATTEND Surgery
DX: Z12.11 Encounter for screening for malignant neoplasm of colon (principal); Z79.82 Long term (current) use of aspirin; Z79.891 Long term (current) use of opiate analgesic; Z79.899 Other long term (current) drug therapy; Z88.8 Allergy status to other drugs, medicaments and biological substances

== ENCOUNTER → 2021-08-24 | Outpatient (CLI) | payer MEDICARE ==
[~2021-08-24] MED LIST changes: -NS 1,000 ML IV ONE
== END ==
LOC: M WUC 14:15
PROVIDERS: ATTEND Registered Nurse
DX: R07.81 Pleurodynia (principal)

== ENCOUNTER → 2021-11-15 | Outpatient (REF) | payer MEDICARE | LOC: M LAB REF 16:01 | PROVIDERS: ATTEND Family Medicine | DX: F31.81 Bipolar II disorder (principal) ==

== ENCOUNTER → 2022-11-30 | Outpatient (REF) | payer MEDICARE, BC | LOC: M LAB REF 16:09 | PROVIDERS: ATTEND Family Medicine | DX: F31.81 Bipolar II disorder (principal) ==

== ENCOUNTER → 2023-09-01 | Outpatient (CLI) | payer MEDICARE ==
[2023-09-01 13:02] LABS: MEAN CORPUSCULAR HEMOGLOBIN 33.5 pg (27.0-33.0); MEAN CORPUSCULAR HGB CONC 35.9 g/dl (32.0-36.5); MEAN CORPUSCULAR VOLUME 93.3 fl (80.0-96.0); PLATELET COUNT, AUTOMATED 203 10^3/uL (150-450); RED BLOOD COUNT 4.18 10^6/uL (4.30-6.10); WHITE BLOOD COUNT 5.2 10^3/uL (4.0-10.0)
[2023-09-01 13:19] LABS: VALPROIC ACID (DEPAKOTE) 102.5 UG/ML (50.0-100.0)
[2023-09-01 13:21] LABS: ALBUMIN 4.2 G/DL (3.2-5.2); ALKALINE PHOSPHATASE 57 U/L (46-116); ALT/SGPT 29 U/L (7.0-40); AST/SGOT 13 U/L (<34); BILIRUBIN,TOTAL 0.5 MG/DL (0.3-1.2); BLOOD UREA NITROGEN 19 MG/DL (9-23); CALCIUM LEVEL 9.5 MG/DL (8.3-10.6); CARBON DIOXIDE LEVEL 30 MMOL/L (20-31); CHLORIDE LEVEL 103 MMOL/L (98-107); CREATININE FOR GFR 0.95 MG/DL (0.70-1.30); GLOMERULAR FILTRATION RATE > 60.0 (>42); GLUCOSE, FASTING 90 MG/DL (74-106); POTASSIUM SERUM 4.1 MMOL/L (3.5-5.1); SODIUM LEVEL 139 MMOL/L (136-145); TOTAL PROTEIN 7.3 G/DL (5.7-8.2)
== END ==
LOC: M LAB 11:38
PROVIDERS: ATTEND Family Medicine
DX: Z01.818 Encounter for other preprocedural examination (principal); H26.9 Unspecified cataract; F31.81 Bipolar II disorder

== ENCOUNTER → 2023-09-01 | Outpatient (CLI) | payer MEDICARE ==
[~2023-09-01] MED LIST changes: +ACET300T48 PO; -AMLO1TAB25; +AMLO1TAB25 PO; +DIVA500T94 PO; +HYDR-3490 PO; +LOSA100T46 PO; +METO1TAB32 PO; +ROSU20TA61 PO; +VENL150C43 PO; +ZOLP10TA2 PO
[2023-09-01 13:24] LABS: FOLATE 20.6 NG/ML (>5.4); THYROID STIMULATING HORMONE 1.866 uIU/ML (0.55-4.78)
[2023-09-12 14:19] LABS: ACETYLCHOLINE RCPTOR BINDING A < 0.03 nmol/L (0.00-0.24); ACETYLCHOLINE RCPTOR BLOCK ABO 25 % (0-25); ANTI-MuSK ABY INTERP <1.0 U/mL (.); VITAMIN B1 LEVEL WHOLE BLOODX 145.4 nmol/L (66.5-200.0); VITAMIN B6,PYRIDOXAL PHOSPHATE 10.5 ug/L (3.4-65.2); VITAMIN E(ALPHA TOCOPHEROL)X 6.2 mg/L (9.0-29.0); VITAMIN E(GAMMA TOCOPHEROL) 1.7 mg/L (0.5-4.9)
== END ==
LOC: M LAB 11:41
PROVIDERS: ATTEND Psychiatry & Neurology Neurology
DX: R53.83 Other fatigue (principal); R41.3 Other amnesia

== ENCOUNTER 2023-09-18 06:34 | Day surgery (SDC) | payer MEDICARE ==
[~2023-09-18] VITALS: Ht 185.4 cm; Wt 107.4 kg
[2023-09-18] MEDS ORDERED: LR 1,000 ML IV SCH (07:00)
[2023-09-18] MEDS: PHENYLEPHRINE 2.5% OPHTH SOL 2ML OS SCH (08:19)
[2023-09-18] MEDS: TETRACAINE 0.5% OPHTH SOLN 4ML OS SCH (08:19)
[2023-09-18] MEDS: FLURBIPROFEN 0.03% OPHTH SOLN 2.5 ML OS SCH (08:19)
[2023-09-18] MEDS: ATROPINE SULFATE 1% OPHTH SOLN 2ML BTL OS SCH (08:19)
[2023-09-18] MEDS ORDERED: MIDAZOLAM INJ 2MG/2ML VIAL As Ordered ONE (09:24)
[2023-09-18] MEDS ORDERED: fentaNYL 100 MCG/2 ML INJECTION As Ordered ONE (09:24)
[2023-09-18] MEDS: CEFUROXIME 1MG/0.1ML INTRACAMERAL INJ As Ordered ONE (09:27)
[2023-09-18] MEDS: LIDOCAINE 1% SDV 5ML VIAL As Ordered ONE (09:27)
[2023-09-18] MEDS ORDERED: PROVISC 10 MG/ML 0.85ML SYRINGE As Ordered ONE (09:49)
[2023-09-18 10:02] VITALS: BP 117/60; TEMP 96.9; O2SAT 98
== END 2023-09-18 10:18 | disposition home or self-care (01) ==
LOC: M SDC 06:34
PROVIDERS: ATTEND Ophthalmology
DX: H25.12 Age-related nuclear cataract, left eye (principal); I10 Essential (primary) hypertension; E78.00 Pure hypercholesterolemia, unspecified; G47.30 Sleep apnea, unspecified; Z79.899 Other long term (current) drug therapy; Z88.8 Allergy status to other drugs, medicaments and biological substances
CPT/HCPCS: 66984; A4649; J0697; J2250; J3010; V2788

== ENCOUNTER → 2024-02-08 | Outpatient (REF) | payer MEDICARE ==
[~2024-02-08] MED LIST changes: -ROSU20TA61 PO; +ROSU20TA86 PO
== END ==
LOC: M LAB REF 13:17
PROVIDERS: ATTEND Family Medicine
DX: F31.81 Bipolar II disorder (principal)

== ENCOUNTER → 2024-08-09 | Outpatient (REF) | payer MEDICARE ==
[~2024-08-09] MED LIST changes: -AMBI10TA PO; +AMLO-751 PO; -AMLO10TA PO; +ZOLP-533 PO
== END ==
LOC: M LAB REF 13:34
PROVIDERS: ATTEND Family Medicine
DX: D64.9 Anemia, unspecified (principal)

== ENCOUNTER → 2024-08-16 | Outpatient (REF) | payer MEDICARE ==
[2024-08-16 15:01] LABS: PERCENT SATURATION 34.5 % (19.7-50.0)
[2024-08-16 15:04] LABS: FERRITIN 468.4 NG/ML (10.5-307.3)
== END ==
LOC: M LAB REF 14:12
PROVIDERS: ATTEND Family Medicine
DX: D64.9 Anemia, unspecified (principal)